=== PATIENT | male | born 1970 | race Caucasian/White ===

== ENCOUNTER 2022-03-27 16:15 | Emergency (ER) | payer MEDICARE, OTHER ==
[~2022-03-27] VITALS: Ht 177.8 cm; Wt 72.7 kg
[2022-03-27] MEDS ORDERED: ALBU8.5H (16:25)
[2022-03-27] MEDS ORDERED: OMEP-173 (16:25)
[2022-03-27] MEDS ORDERED: OMEP40CA5 (16:25)
[2022-03-27] MEDS ORDERED: TAMS1CAP17 (16:26)
[2022-03-27] MEDS ORDERED: FLON1SPR NARES (16:26)
[2022-03-27] MEDS ORDERED: GI COCKTAIL 50ML BTL(HYOSCYAMINE/MAALOX/LIDOCAINE VISCOUS)(1:3:1) PO ONE (17:05)
[2022-03-27 17:27] LABS: BASO # 0.1 10^3/uL (0.0-0.2); EOS # 0.2 10^3/uL (0.0-0.5); EOS % 2.4 % (0.0-3.0); HEMATOCRIT 43.3 % (42.0-52.0); HEMOGLOBIN 14.7 g/dl (13.5-17.5); LYMPH # 2.3 10^3/uL (1.5-5.0); LYMPH % 31.9 % (24.0-44.0); MEAN CORPUSCULAR HGB CONC 33.9 g/dl (32.0-36.5); MEAN CORPUSCULAR VOLUME 88.4 fl (80.0-96.0); MONO # 0.4 10^3/uL (0.0-0.8); MONO % 6.2 % (2.0-8.0); NEUTROPHILS # 4.1 10^3/uL (1.5-8.5); NEUTROPHILS % 58.2 % (36.0-66.0); PLATELET COUNT, AUTOMATED 208 10^3/uL (150-450); WHITE BLOOD COUNT 7.1 10^3/uL (4.0-10.0)
[2022-03-27 17:49] LABS: ALBUMIN 3.7 GM/DL (3.2-5.2); ALT/SGPT 24 U/L (12-78); BILIRUBIN,DIRECT 0.1 MG/DL (0.0-0.2); BILIRUBIN,TOTAL 0.4 MG/DL (0.2-1.0); BLOOD UREA NITROGEN 19 MG/DL (7-18); CALCIUM LEVEL 8.8 MG/DL (8.5-10.1); CARBON DIOXIDE LEVEL 27 MEQ/L (21-32); CHLORIDE LEVEL 108 MEQ/L (98-107); CREATININE FOR GFR 0.98 MG/DL (0.70-1.30); GLOMERULAR FILTRATION RATE > 60.0 (>56); GLUCOSE, FASTING 83 MG/DL (70-100); LIPASE 78 U/L (73-393); MAGNESIUM LEVEL 2.3 MG/DL (1.8-2.4); NT-PRO BNP 47 PG/ML (<125); POTASSIUM SERUM 3.9 MEQ/L (3.5-5.1); SODIUM LEVEL 139 MEQ/L (136-145); TOTAL PROTEIN 6.8 GM/DL (6.4-8.2)
[2022-03-27 17:51] LABS: CK-MB VALUE MASS < 1.0 NG/ML (<3.6); CPK CREATINE PHOSPHOKINASE 115 U/L (39-308); MB/CK RELATIVE INDEX 0.87 (< OR =4)
[2022-03-27 17:57] LABS: RSV AMPLIFICATION NEGATIVE (NEGATIVE)
[2022-03-27 18:38] LABS: CK-MB VALUE MASS < 1.0 NG/ML (<3.6); CPK CREATINE PHOSPHOKINASE 106 U/L (39-308); MB/CK RELATIVE INDEX 0.94 (< OR =4)
[2022-03-27] MEDS ORDERED: holter (18:40)
[2022-03-27 18:45] VITALS: BP 110/63
== END 2022-03-27 18:55 | disposition home or self-care (01) ==
LOC: M ED 16:15
DX: R07.89 Other chest pain (principal); R00.2 Palpitations; J45.20 Mild intermittent asthma, uncomplicated; K21.9 Gastro-esophageal reflux disease without esophagitis; N40.0 Benign prostatic hyperplasia without lower urinary tract symptoms; Z79.899 Other long term (current) drug therapy; F17.200 Nicotine dependence, unspecified, uncomplicated

== ENCOUNTER → 2023-02-19 | Outpatient (REF) | payer MEDICARE, OTHER ==
[~2023-02-19] MED LIST: ALBU8.5H; FLON1SPR NARES; OMEP-173; OMEP40CA5; TAMS1CAP17; holter
[2023-02-19 13:45] LABS: SEMEN APPEARANCE OPAQUE (OPAQUE)
[2023-02-19 13:46] LABS: SEMEN VISCOSITY VISCOUS (LIQUID); SEMEN VOLUME 2.2 ML (2.0-5.0); SEMEN WBC >1 M/ml (<=1 M/ml); SEMEN pH 8.5 (7.0-8.0)
== END ==
LOC: M SMT 12:56
PROVIDERS: ATTEND Physician Assistant
DX: N46.9 Male infertility, unspecified (principal)